=== PATIENT | female | born 1945 | race Caucasian/White ===

== ENCOUNTER → 2020-06-28 | Outpatient (CLI) | payer MEDICARE ==
[2020-06-28 12:25] LABS: Uric Acid 5.2 mg/dL (3.7-7.4)
[2020-06-28 13:08] LABS: C Reactive Protein <5.0 mg/L (<10.0)
[2020-06-29 04:00] LABS: Rheumatoid Factor, Qnt <4 IU/mL (0-15)
== END | disposition home or self-care (01) ==
LOC: LABWHC1 10:19
PROVIDERS: ATTEND Psychiatry & Neurology Neurology
DX: G56.02 Carpal tunnel syndrome, left upper limb (principal); G56.22 Lesion of ulnar nerve, left upper limb; M65.9 Synovitis and tenosynovitis, unspecified; M19.042 Primary osteoarthritis, left hand
CPT/HCPCS: 36415; 84550; 85652; 86038; 86140; 86431

== ENCOUNTER → 2024-10-10 | Outpatient (CLI) | payer MEDICARE ==
[2024-10-10 19:50] LABS: HCT 43.3 % (37.2-46.3); HGB 13.5 g/dL (12.0-15.0); MCH 28.9 pg (27.0-32.0); MCHC 31.2 g/dL (32.0-37.0); MCV 92.7 FL (80.0-97.0); Mean Platelet Volume 11.8 FL (9.5-12.2); NRBC Per 100 WBC 0 X 10*3/uL (0.00-0.01); Platelet Count 458 X 10*3/uL (140-440); RBC 4.67 X 10*6/uL (4.10-5.20); RDW 14.4 % (11.5-14.5); WBC 10.46 X 10*3/uL (4.50-10.00)
[2024-10-10 20:59] LABS: Blood Urea Nitrogen 30.2 mg/dL (9.0-27.0); Carbon Dioxide 25.5 mmol/L (21.6-31.8); Chloride 103 mmol/L (96-109); Potassium 4.6 mmol/L (3.5-5.5); Sodium 141 mmol/L (135-145)
== END | disposition home or self-care (01) ==
LOC: LABPAT 13:46
PROVIDERS: ATTEND Internal Medicine Clinical Cardiac Electrophysiology
DX: Z01.812 Encounter for preprocedural laboratory examination (principal); I48.19 Other persistent atrial fibrillation
CPT/HCPCS: 36415; 80051; 82565; 84520; 85027

== ENCOUNTER → 2024-10-23 | Day surgery (SDC) | payer MEDICARE ==
[2024-10-19 15:27] VITALS: BMI 42.0
[~2024-10-23] MED LIST: LACTATED RINGERS 1,000 ML IV SCH; LIDOCAINE 1% INJ 10MG/ML (20 ML MDV) ONE; PROPOFOL 10 MG/ML 20 ML VIAL IV ONE; SODIUM CHLORIDE 0.9% 1,000 ML IV SCH
[2024-10-23] MEDS: IV FLUID CONTINUATION 1,000 ML IV ONE (06:30)
--- NOTE | 2024-10-23 07:49 | P.HPCAR ---
History of Present Illness This is Dr. Mariee dictating an H/P on this patient The patient was interviewed and examined IMPRESSION / ASSESSMENT: Persistent symptomatic atrial fibrillation, started on oral flecainide Remains in atrial fibrillation with RVR Left atrial enlargement Preserved LV systolic function No ischemia on stress testing with Lexiscan PLAN: Electrical cardioversion on flecainide Readjustment of medications thereafter HPI Patient continues to remain short of breath with tiredness and fatigue. She remains in atrial fibrillation despite initiation of 100 mg twice daily of flecainide Denies any angina syncope ROS: No fever chills or rigors, no cough, phlegm or expectoration, no nausea, vomiting or diarrhea, no hematuria, dysuria, no musculoskeletal complaints, no strokes or seizures, no skin lesions. EXAMINATION: Heart sounds are normal but irregular no murmurs Breath sounds are clear 138/82 mmHg heart rates 130 beats a minute No lower extremity edema REVIEW OF LABS, ECG & MEDICAL DATA Normal TSH Physical Exam Vitals: Intake and Output 10/22/24 10/23/24 10/23/24 22:59 06:59 14:59 Intake Total 0 Balance 0 Intake: IV 0 Past Medical History Past Medical History: Atrial Fibrillation, Hypertension, Thyroid Disorder History of Any Multi-Drug Resistant Organisms: None Reported Past Surgical History: Cholecystectomy Additional Past Surgical History / Comment(s): COLONOSCOPY Past Anesthesia/Blood Transfusion Reactions: No Reported Reaction Past Psychological History: No Psychological Hx Reported Smoking Status: Never smoker Past Alcohol Use History: None Reported Past Drug Use History: None Reported - Past Family History Brother(s) Family Medical History: Cancer Physical Examination Intake and Output 10/22/24 10/23/24 10/23/24 22:59 06:59 14:59 Intake Total 0 Balance 0 Intake: IV 0 Results Current Medications Generic Name Dose Route Start Last Admin Trade Name Freq PRN Reason Stop Dose Admin Sodium Chloride 1,000 mls @ 20 mls/hr 10/23/24 05:55 Saline 0.9% IV 11/22/24 05:54 .Q24H KATE Lactated Ringer's 1,000 mls @ 20 mls/hr 10/23/24 05:55 Lactated Ringers IV 11/22/24 05:54 .Q24H KATE Intake and Output 10/22/24 10/23/24 10/23/24 22:59 06:59 14:59 Intake Total 0 Balance 0 Intake: IV 0
--- NOTE | 2024-10-23 07:50 | P.EPPROC ---
- EP Procedure Note Electrophysiology Procedure Note: Procedure Electrical cardioversion for symptomatic persistent atrial fibrillation despite starting flecainide 100 mg twice daily Patient was asked to hold metoprolol Details Successful electrical cardioversion to sinus rhythm/sinus bradycardia in the 50s Plan Hold metoprolol for now Continue flecainide 100 mg twice daily Continue Eliquis 5 mg twice daily Continue losartan Continue levothyroxine Follow-up Holter monitor in 1 week and decision regarding dose of flecainide and reinitiation of beta-blockers depending upon patient's heart rate
[2024-10-23 11:24] VITALS: BP 106/52; PULSE 56; RESP 16
== END | disposition home or self-care (01) ==
LOC: CATHEP 05:44
PROVIDERS: ATTEND Internal Medicine Clinical Cardiac Electrophysiology
DX: I48.19 Other persistent atrial fibrillation (principal); I11.9 Hypertensive heart disease without heart failure; E07.9 Disorder of thyroid, unspecified; Z79.01 Long term (current) use of anticoagulants; Z79.899 Other long term (current) drug therapy
CPT/HCPCS: 92960; 84443; J2003; J2704